=== PATIENT | male | born 1935 | race Caucasian/White ===

== ENCOUNTER → 2019-11-06 | Emergency (ER) | payer OTHER ==
[~2019-11-06] VITALS: Ht 175.3 cm; Wt 102.1 kg
[~2019-11-06] MED LIST: ALBUAER3 IN; ASPI-498 PO; B COCAP3 PO; BISO5TAB44 PO; CHOL20007 PO; CICL80AE2 IN; DABI1CAP PO; FERR-7 PO; FINA1TAB10 PO; FURO1TAB33 PO; FUROSEMIDE 20 MG/2 ML VIAL ONE; FUROSEMIDE 40 MG/4 ML VIAL IV ONE; GABA250S2 PO; HYDROmorphone HCL 2 MG/ML VL IV ONE; HYDROmorphone HCL 2 MG/ML VL ONE; KETOROLAC TROMETH 15 mg/ml 1ML VL IV ONE; KETOROLAC TROMETH 30 MG/ML 1ML VIAL ONE; LEVO750T8 PO; LIDOCAINE 1% HCL (LOCAL ANESTH.) INJ 20ML MDV ID ONE; LIDOCAINE 2% JELLY 11ml (GLYDO) ONE; LIDOCAINE HCL 2% TOP JELLY 5ML TOP ONE; LORazepam 2MG/ML-1ML VIAL IV ONE; ONDANSETRON HCL 4 MG/2 ML VIAL IV ONE; ONDANSETRON HCL 4 MG/2 ML VIAL ONE; PAR20T GT; PERCOT PO; PRIM50TA5 GT; SIMV-13 PO; SIMV-8 PO; TERA2CAP45 PO; TIOT1AER IN
[2019-11-06 09:11] LABS: Basophils # (auto) 0 10 ^3/uL (0-0.2); Basophils % (auto) 0.7 % (0.0-2.0); Eosinophils # (auto) 0.2 10 ^3/uL (0-0.8); Eosinophils % (auto) 3.7 % (0.0-7.0); Hematocrit 36.8 % (41.0-53.0); Hemoglobin 12.4 g/dL (13.5-17.5); Lymphocytes # (auto) 1.2 10 ^3/uL (0.4-5.4); Lymphocytes % (auto) 18.9 % (10.0-50.0); Mean Corpuscular Hemoglobin 32.2 pg (28.0-32.0); Mean Corpuscular Hgb Conc. 33.7 g/dL (32.0-36.0); Mean Corpuscular Volume 95.6 fL (80.0-100.0); Monocytes # (auto) 0.6 10 ^3/uL (0-1.3); Monocytes % (auto) 10.2 % (0.0-12.0); Neutrophils # (auto) 4.1 10 ^3/uL (1.6-8.6); Neutrophils % (auto) 66.5 % (37.0-80.0); Platelet Count (auto) 140 10^3/uL (140-450); Red Blood Cells 3.85 10^6/uL (4.5-5.90); Red Cell Distribution Width 13.8 % (11.8-14.3); White Blood Cell 6.2 10^3/uL (4.4-10.8)
[2019-11-06 09:36] LABS: Albumin 3.4 g/dL (3.4-5.0); Calcium 8.5 mg/dL (8.5-10.1); Potassium 3.8 mmol/L (3.5-5.1)
[2019-11-06 09:41] LABS: BUN/Creatinine Ratio 19.4; Bilirubin, Total 0.3 mg/dL (0.2-1.0); Total Protein 7.3 g/dL (6.4-8.2)
[2019-11-06 13:51] VITALS: BP 117/65
== END | disposition home or self-care (01) ==
LOC: ER 08:27
DX: R33.8 Other retention of urine (principal); I11.0 Hypertensive heart disease with heart failure; I50.43 Acute on chronic combined systolic (congestive) and diastolic (congestive) heart failure; Z88.5 Allergy status to narcotic agent; Z79.899 Other long term (current) drug therapy
CPT/HCPCS: 36415; 51705; 71045; 76856; 80053; 83880; 84484; 85025; 93005; 96374; 96375; 99285; J1170; J1885; J1940; J2001; J2060; J2405; 51702

== ENCOUNTER 2020-02-22 20:10 | Inpatient (IN) | payer OTHER ==
[~2020-02-22] VITALS: Ht 188 cm; Wt 106.8 kg
[~2020-02-22 20:10] MED LIST changes: -ALBUAER3 IN; -ASPI-498 PO; -B COCAP3 PO; -BISO5TAB44 PO; -CHOL20007 PO; -CICL80AE2 IN; -DABI1CAP PO; -FERR-7 PO; -FINA1TAB10 PO; -FURO1TAB33 PO; -FUROSEMIDE 20 MG/2 ML VIAL ONE; -FUROSEMIDE 40 MG/4 ML VIAL IV ONE; -GABA250S2 PO; -HYDROmorphone HCL 2 MG/ML VL IV ONE; -HYDROmorphone HCL 2 MG/ML VL ONE; -KETOROLAC TROMETH 15 mg/ml 1ML VL IV ONE; -KETOROLAC TROMETH 30 MG/ML 1ML VIAL ONE; -LEVO750T8 PO; -LIDOCAINE 1% HCL (LOCAL ANESTH.) INJ 20ML MDV ID ONE; -LIDOCAINE 2% JELLY 11ml (GLYDO) ONE; -LIDOCAINE HCL 2% TOP JELLY 5ML TOP ONE; -LORazepam 2MG/ML-1ML VIAL IV ONE; -ONDANSETRON HCL 4 MG/2 ML VIAL IV ONE; -ONDANSETRON HCL 4 MG/2 ML VIAL ONE; -PERCOT PO; -SIMV-13 PO; -TIOT1AER IN
[2020-02-22] MEDS ORDERED: SODIUM CHLORIDE 0.9% 2,700 ML IV ONE (22:00)
[2020-02-22 22:17] LABS: Basophils # (auto) 0 10 ^3/uL (0-0.2); Basophils % (auto) 0.1 % (0.0-2.0); Eosinophils # (auto) 0 10 ^3/uL (0-0.8); Eosinophils % (auto) 0.1 % (0.0-7.0); Hematocrit 28.4 % (41.0-53.0); Hemoglobin 9.4 g/dL (13.5-17.5); Lymphocytes # (auto) 0.7 10 ^3/uL (0.4-5.4); Lymphocytes % (auto) 7.8 % (10.0-50.0); Mean Corpuscular Hemoglobin 31.6 pg (28.0-32.0); Mean Corpuscular Hgb Conc. 33.1 g/dL (32.0-36.0); Mean Corpuscular Volume 95.4 fL (80.0-100.0); Monocytes # (auto) 0.6 10 ^3/uL (0-1.3); Monocytes % (auto) 7.1 % (0.0-12.0); Neutrophils # (auto) 7.5 10 ^3/uL (1.6-8.6); Neutrophils % (auto) 84.9 % (37.0-80.0); Platelet Count (auto) 214 10^3/uL (140-450); Red Blood Cells 2.98 10^6/uL (4.5-5.90); Red Cell Distribution Width 15.1 % (11.8-14.3); White Blood Cell 8.8 10^3/uL (4.4-10.8)
[2020-02-22] MEDS: PIPERACILLIN-TAZOB 3.375GM 100 ML IV SCH (22:26)
[2020-02-22 22:33] LABS: INR 1.15 (0.9-1.15); Partial Thromboplastin Time 31.5 sec (23.0-31.2)
[2020-02-22 23:00] LABS: Urine Amorphous Crystal FEW /hpf (None Seen); Urine Bacteria FEW /hpf (None Seen); Urine Blood 2+ /uL (Negative); Urine Hyaline Cast FEW /lpf (0 - 2); Urine Mucus FEW (None Seen); Urine Specific Gravity 1.021 (1.001-1.035); Urine WBC 7 /hpf (0 - 3)
[2020-02-22 23:01] LABS: Albumin 2.2 g/dL (3.4-5.0); BUN/Creatinine Ratio 43.5; Calcium 10.1 mg/dL (8.5-10.1); Potassium 4.2 mmol/L (3.5-5.1)
[2020-02-22 23:06] LABS: Bilirubin, Total 0.4 mg/dL (0.2-1.0); Total Protein 6.3 g/dL (6.4-8.2)
[2020-02-22 23:52] LABS: Lactic Acid w/Reflex 2.2 mmol/L (0.4-2.0)
[2020-02-23 00:28] LABS: Amylase 17 U/L (25-115); Lipase 17 U/L (73-393)
[2020-02-23] MEDS ORDERED: ENOXAPARIN SOD 60 MG/0.6 ML SYRINGE SC ONE (02:15)
[2020-02-23] MEDS ORDERED: ASPirin-EC 325mg tab PO ONE (02:15)
[2020-02-23] MEDS ORDERED: SODIUM CHLORIDE 0.9% 1,000 ML IV ONE (03:30)
[2020-02-23] MEDS ORDERED: ACETAMINOPHEN 325 MG TAB PO PRN ×2 (03:30→14:15)
[2020-02-23] MEDS ORDERED: ONDANSETRON HCL 4 MG/2 ML VIAL IV PRN (03:30)
[2020-02-23] MEDS ORDERED: IPRATROPIUM BROM 0.5 MG/2.5ML INH SOL NEB PRN (03:30)
[2020-02-23] MEDS ORDERED: DOCUSATE SOD 100 MG CAP PO PRN (03:30)
[2020-02-23] MEDS ORDERED: NITROGLYCERIN 0.4 MG SL TAB SL PRN (03:30)
[2020-02-23] MEDS: cefTRIAXone 1GM/50ML D5W 50 ML IV SCH (03:55)
[2020-02-23 04:02] LABS: Calcium 8.7 mg/dL (8.5-10.1)
[2020-02-23 04:09] LABS: BUN/Creatinine Ratio 42.7
[2020-02-23 04:21] VITALS: BP 162/141
[2020-02-23] MEDS: PIPERACILLIN-TAZOB 3.375GM 100 ML IV SCH (05:27)
--- NOTE | 2020-02-23 06:24 | NUR ---
RT NOTE: NO TX INDICATED AT THIS TIME. NO SIGNS OF RESPIRATORY DISTRESS. LUNG SOUNDS CLEAR. ON 1LNC SPO2 99 HR 73 RR 22. PT AWARE TO PAGE FOR RESPIRATORY SHOULD NEED FOR TX ARISE. WILL CONTINUE TO MONITOR.
[2020-02-23 06:55] LABS: Basophils # (auto) 0 10 ^3/uL (0-0.2); Basophils % (auto) 0.2 % (0.0-2.0); Eosinophils # (auto) 0 10 ^3/uL (0-0.8); Eosinophils % (auto) 0.2 % (0.0-7.0); Hematocrit 30.1 % (41.0-53.0); Hemoglobin 9.7 g/dL (13.5-17.5); Lymphocytes # (auto) 0.6 10 ^3/uL (0.4-5.4); Lymphocytes % (auto) 6.7 % (10.0-50.0); Mean Corpuscular Hemoglobin 31.6 pg (28.0-32.0); Mean Corpuscular Hgb Conc. 32.4 g/dL (32.0-36.0); Mean Corpuscular Volume 97.4 fL (80.0-100.0); Monocytes # (auto) 0.5 10 ^3/uL (0-1.3); Monocytes % (auto) 5.7 % (0.0-12.0); Neutrophils # (auto) 7.6 10 ^3/uL (1.6-8.6); Neutrophils % (auto) 87.2 % (37.0-80.0); Nucleated Red Blood Cells % 0.1 %; Platelet Count (auto) 183 10^3/uL (140-450); Red Blood Cells 3.09 10^6/uL (4.5-5.90); Red Cell Distribution Width 15.5 % (11.8-14.3); White Blood Cell 8.8 10^3/uL (4.4-10.8)
--- NOTE | 2020-02-23 09:29 | NUR ---
Report Received report from PAINT SPRAY INSPECTORCAMRYN Bearden.
[2020-02-23] MEDS ORDERED: CLOPIDOGREL BISULFATE 75 MG TAB PO SCH (10:00)
[2020-02-23] MEDS ORDERED: TERAZOSIN HCL 1 MG CAP PO SCH (10:00)
[2020-02-23] MEDS: ENOXAPARIN SOD 100 MG/1 ML SYRINGE SC SCH ×2 (10:00→23:30)
[2020-02-23] MEDS: PARoxetine 20 MG TAB PO SCH (10:00)
[2020-02-23 10:15] VITALS: BP 110/50
--- NOTE | 2020-02-23 10:15 | NUR ---
Patient Arrived to Unit Addendum: 02/23/20 at 1836 by NAY GONZALEZ RN RN Patient currently resting with eyes closed, no signs of distress at this time, respirations even and unlabored. Will continue to monitor.
[2020-02-23 10:21] VITALS: BP 110/50
--- NOTE | 2020-02-23 11:41 | NUR ---
at Bedside Dr. Andersen at bedside discussing plan of care with patient.
[2020-02-23] MEDS ORDERED: GABAPENTIN 300 MG CAP PO ONE (12:30)
[2020-02-23 12:40] VITALS: BP 112/52
--- NOTE | 2020-02-23 13:35 | NUR ---
Family Updated family on patient plan of care. Obtained patient home meds, see med rec.
[2020-02-23] MEDS ORDERED: PERCOT PO (13:45)
[2020-02-23] MEDS: PRIMIDONE 50 MG TAB PO SCH (13:55)
[2020-02-23] MEDS: ASPirin-EC 81 mg tab PO SCH (13:59)
--- NOTE | 2020-02-23 14:05 | NUR ---
Called Received call from Dr. Andersen, new orders received.
[2020-02-23] MEDS ORDERED: OXYCODONE W/ ACETAMINOPHEN 5/325MG TABLET PO PRN (14:15)
[2020-02-23] MEDS: OXYCODONE W/ ACETAMINOPHEN 5/325MG TABLET PO PRN (14:33)
--- NOTE | 2020-02-23 15:48 | NUR ---
Obtained Forms Obtained patient's legal paperwork, placed in chart.
--- NOTE | 2020-02-23 15:57 | NUR ---
Consent for Medical Records Obtained patient consent for medical records; Patient unable to sign at this time and provided verbal consent, witnessed with Philomena Harper RN, patient is AOx4 at this time.
--- NOTE | 2020-02-23 16:15 | NUR ---
Fax Sent fax to [facility] requesting patient's medical records.
--- NOTE | 2020-02-23 17:20 | NUR ---
BP Patient's blood pressure 80/50. Patient is currently asymptomatic and responds to voice. Patient's legs elevated and blood pressure reassessed, BP currently 102/59 HR 78. Will notify
--- NOTE | 2020-02-23 17:35 | NUR ---
MD Called Received call back from Dr. Andersen. Notified MD of patient's blood pressure and actions taken. Per Md, administer .9normal saline at 66ml/hr and discontinue blood pressure medication.
[2020-02-23 17:36] VITALS: BP 102/59
[2020-02-23] MEDS: ALBUTEROL SULF 2.5 MG/0.5ML(0.5%) NEB SOLN NEB PRN (17:40)
[2020-02-23] MEDS: SODIUM CHLORIDE 0.9% 1,000 ML IV SCH (17:56)
[2020-02-23] MEDS: ATORVASTATIN 20 MG TAB PO SCH (17:56)
--- NOTE | 2020-02-23 17:57 | NUR ---
MRSA Swab MRSA Swab sent to lab.
--- NOTE | 2020-02-23 18:30 | NUR ---
BP Reassessed Reassessed blood pressure: 117/91, HR 81.
--- NOTE | 2020-02-23 19:30 | NUR ---
Closing Shift Note Report given to NOC RNKristen. Endorsed care and follow up of medical records fax.
[2020-02-23] MEDS ORDERED: DABI1CAP PO (19:32)
[2020-02-23] MEDS ORDERED: FINA1TAB10 PO (19:42)
[2020-02-23] MEDS ORDERED: FERR-7 PO (19:42)
[2020-02-23] MEDS ORDERED: ASPI-498 PO (19:42)
[2020-02-23] MEDS ORDERED: SIMV-13 PO (19:42)
[2020-02-23] MEDS ORDERED: CICL80AE2 IN (19:42)
[2020-02-23] MEDS ORDERED: TIOT1AER IN (19:42)
[2020-02-23] MEDS ORDERED: BISO5TAB44 PO (19:42)
[2020-02-23] MEDS ORDERED: GABA250S2 PO (19:42)
[2020-02-23] MEDS ORDERED: CHOL20007 PO (19:42)
[2020-02-23] MEDS ORDERED: B COCAP3 PO (19:42)
[2020-02-23] MEDS ORDERED: ALBUAER3 IN (19:42)
[2020-02-23 22:00] VITALS: BP 108/61
[2020-02-23] MEDS: GABAPENTIN 300 MG CAP PO SCH (23:30)
[2020-02-24] MEDS ORDERED: FURO1TAB33 PO (03:53)
--- NOTE | 2020-02-24 04:01 | NUR ---
PATIENT DAUGHTER CALLED UPDATED HER ON PATIENT STATUS
[2020-02-24 06:00] VITALS: BP 118/60
[2020-02-24] MEDS: GABAPENTIN 300 MG CAP PO SCH ×3 (06:54→21:31)
--- NOTE | 2020-02-24 07:38 | NUR ---
Respiratory note: HR 82, RR 18, SPO2 96% ON 2 L NC, BS CLEAR. PRN MED NEB TX NOT INDICATED AT THIS TIME.NO SIGNS OR SYMPTOMS OF RESPIRATORY DISTRESS NOTED.
[2020-02-24] MEDS: SODIUM CHLORIDE 0.9% 1,000 ML IV SCH (08:54)
[2020-02-24 09:00] VITALS: BP 125/64
--- NOTE | 2020-02-24 10:08 | NUR ---
WOUND CARE NOTE: Wound care in to see patient per wound care request regarding "wounds on sacrum, bed bound". Patient is 84 years old male with admitting diagnosis of NSTEMI, Urinary Tract Infection. Patient is resting in bed in Rm. 280A. Patient is awake, alert and able to verbalize needs. Patient is in no stated pain at this time. He's max assist in turning and repositioning and his Issa score is 17. Skin assessment done with the assistance of patient's nurse, CAMRYN Kelsey. Noted intact DTI to patient's Lt (7x1.2cm) and Rt (5x4cm) sacrum. Wounds are dark red/purple, with bright red non-blanchable surrounding skin. Patient's nurse, CAMRYN Kelsey reported that according to patient's daughter that patient has had the sacral wounds "black spots" and she's going the treatment and applying gauze. Patient is incontinent and passed small amount of pasty stool. Jo-Ann care given and photograph of patient's wounds are taken for reference. Applied Z Guard cream to sacral and buttocks area. Repositioned patient for comfort facing his Lt side, redistributed pressure points with pillows. Patient tolerated well. CAMRYN kelsey at bedside. RECOMMENDATION: Nursing to continue with BID/PRN dressing change to sacral wounds per MD order, Dietary consult, frequent turning and repositioning schedule as condition permits, redistribute pressure points with pillows, side to side positioning if possible, elevate heels on pillows,air mattress (ordered), continue monitoring by wound care while patient is hospitalized. Addendum: 02/24/20 at 1229 by Vandana Jovel RN Amended: Links added.
[2020-02-24] MEDS: PRIMIDONE 50 MG TAB PO SCH (10:20)
[2020-02-24] MEDS: cefTRIAXone 1GM/50ML D5W 50 ML IV SCH (10:20)
[2020-02-24] MEDS: ASPirin-EC 81 mg tab PO SCH (10:20)
[2020-02-24] MEDS: PARoxetine 20 MG TAB PO SCH (10:26)
[2020-02-24] MEDS: ENOXAPARIN SOD 100 MG/1 ML SYRINGE SC SCH ×2 (10:26→21:31)
[2020-02-24] MEDS: OXYCODONE W/ ACETAMINOPHEN 5/325MG TABLET PO PRN (10:55)
--- NOTE | 2020-02-24 12:03 | NUR ---
Assessment Patient is an 84-year-old male. Assessment was completed with patient daughter Yvette Ph:). Per Yvette patient lives with her and functioned with assistance. Per Yvette she is patient caregiver. Per Yvette patient has a walker, wheelchair, shower chair and home oxygen for home use. Advised Yvette there is a social service consult for hospice. Information and choice letter was given to Yvette. Per Yvette she would like [facility]. Informed Yvette clinical information will be faxed to [facility] and Rebecca with [facility] will be contacting her. Per Yvette patient will return home to his prior living arrangements post discharge. Informed Yvette she has a right to participate in all discharge planning. Yvette verbalized understanding and agreed to discharge plan. Faxed clinical information to [facility]. Addendum: 02/24/20 at 1204 by TA VARELA Amended: Links added.
--- NOTE | 2020-02-24 12:11 | NUR ---
AIR MATTRESS: Air mattress ordered at [facility]. VICK 02/24/20 @ 1809 Reference #[id number]. Please call [facility] at if needed to follow up. Addendum: 02/24/20 at 1211 by Vandana Jovel RN Amended: Links added.
[2020-02-24 13:00] VITALS: BP 130/60
--- NOTE | 2020-02-24 14:36 | NUR ---
Consult Consider adding Ensure Enlive BID Consider adding MVI and Vit C 500 mg BID Est energy needs 2468-8828 kcal (20-22 kcal/kg WW 89.8kg) Est protein needs 77-90g (0.8-1g/kg BW 89.8kg) will reassess prn. Addendum: 02/24/20 at [address] Amended: Links added.
--- NOTE | 2020-02-24 15:00 | NUR ---
D/C planning Received a follow up called from Rebecca with [facility] advising me Lalo is requesting an order to be faxed to them for hospice. Informed Rebecca textile conversion manager assign to this case will faxed clinical information to [facility].
[2020-02-24 16:29] VITALS: BP 102/57
[2020-02-24] MEDS: ATORVASTATIN 20 MG TAB PO SCH (17:55)
--- NOTE | 2020-02-24 19:30 | NUR ---
Opening Shift Note Assumed care of patient, awake and alert. No S/S of distress/SOB or pain. Instructed on POC and to call for assist PRN. Bed in lowest locked position, call light within reach, side rails up x2, fall precautions in place. Will continue to monitor for changes Q1hr and PRN.
--- NOTE | 2020-02-24 21:15 | NUR ---
EKG Tele monitor showing new onset A-fib, EKG done and signed by oncall hospitalist, placed in hard chart. No new orders at this time. Continue to monitor patient.
[2020-02-24 22:00] VITALS: BP 102/61
[2020-02-24] MEDS: BUDESONIDE (INHALATION) 0.5 MG/2 ML NEB NEB SCH (22:24)
[2020-02-24] MEDS: ALBUTEROL SULF 2.5 MG/0.5ML(0.5%) NEB SOLN NEB PRN (22:24)
--- NOTE | 2020-02-24 23:22 | NUR ---
Spoke with hospitalist Spoke with KEKE Mota and informed that patients HR has sustained afib between 120s-130s . New orders received and read back for verification.
[2020-02-24] MEDS ORDERED: DIGOXIN (250MCG/ML) 2 ML AMPULE IV ONE (23:30)
[2020-02-25 05:00] VITALS: BP 130/71
[2020-02-25] MEDS: GABAPENTIN 300 MG CAP PO SCH ×2 (06:04→14:58)
[2020-02-25 08:00] VITALS: BP 115/55
--- NOTE | 2020-02-25 08:00 | NUR ---
ASSESSMENT NOTE PT IS ALERT TO SELF AND SITUATION, CONFUSED ON TIMES AND PERSON, RESTING IN BED IN LOW CARDOZA POSITION, AIR MATTRESS, RODRÍGUEZ CATHETER TO GRAVITY, ABLE TO VERBALIS HIS NEEDS, ASSISTING IN REPOSITIONING AT ALL TIMES, HEAD OF BED ELEVATED FOR ASPIRATION PRECAUTIONS, DRY CLEAN DRESSING NOTED AT THE RT BUTTOCKS AREA, ASSIST PT WITH HIS MEALS, KEPT DRY AND CLEAN
[2020-02-25 09:00] VITALS: BP 104/57
[2020-02-25] MEDS: cefTRIAXone 1GM/50ML D5W 50 ML IV SCH (09:23)
[2020-02-25] MEDS: ENOXAPARIN SOD 100 MG/1 ML SYRINGE SC SCH (09:24)
[2020-02-25] MEDS: PARoxetine 20 MG TAB PO SCH (09:24)
[2020-02-25] MEDS: PRIMIDONE 50 MG TAB PO SCH (09:24)
--- NOTE | 2020-02-25 09:49 | NUR ---
FAMILY PATIENT'S DAUGHTER CALLED, INFORM ME THAT THEY DID OBTAIN A REFERRAL FROM DR WILD IN [place] FOR HER FATHER TO GO HOME ON HOSPICE, PT MADE AWARE
[2020-02-25] MEDS: ASPirin-EC 81 mg tab PO SCH (10:00)
[2020-02-25] MEDS: BUDESONIDE (INHALATION) 0.5 MG/2 ML NEB NEB SCH (10:16)
--- NOTE | 2020-02-25 11:15 | NUR ---
02/25/20 4713 Faxed to [place] face sheet, Order for Hospice, H&P, progress notes, Requesting Hospice.
--- NOTE | 2020-02-25 11:35 | NUR ---
DR STOCK IS HERE FOLLOWING UP ON PT, ADVICE TO FOLLOW UP WITH [facility] REGARDING DISCHARGE HOME WITH HOSPICE TODAY
[2020-02-25] MEDS ORDERED: AMIODARONE HCL 200 MG TAB PO ONE (12:00)
[2020-02-25 13:00] VITALS: BP 130/64
--- NOTE | 2020-02-25 13:30 | NUR ---
PHYSICAL THERAPY AT BED SIDE ASSISTING PT TO GET OUT OF BED
--- NOTE | 2020-02-25 14:00 | NUR ---
CALLED [facility] LEFT A MESSAGE AT HER ANSWER MACHINE TO CALL ME BACK
--- NOTE | 2020-02-25 15:43 | NUR ---
02/25/20 1500 Called [facility] and held on the phone for 20 minutes, then spoke with Ruby regarding the Hospice request for the patient, stated she has the clinicals that were sent and there was only 2 field nurse case manager that handle the request and she was going to assign them to one of the two but would not give me a name, Gave her my call back information explain to her that the patient has an order to go home today and the family wants him to be discharged
--- NOTE | 2020-02-25 15:50 | NUR ---
FAMILY PATIENT'S DAUGHER CALLED SATED I AM GOING TO PICK HIM UP NOW, I ALREADY SET UP APPOINTMENT WITH HOSPICE TOMORROW AND THEY WILL COME HOME TO TALK TO MY FATHER> INFORM DOUGLAS PATIENT'S DAUGHTER THAT I AM WAITING FOR HOSPICE TO COME OVER , DO THEIR ASSESSMENT AND TRANSFER HIM TO HER HOUSE, DOUGLAS STATED NO, HE DOES NOT NEED TO STAY ANOTHER NIGHT AT THE HOSPITAL, HE NEED TO COME HOME>, MADE AWARE THAT I AM WORKING ON HIS PAPER ORK AND GET HIM READY TO BE DISCHARGE HOME
[2020-02-25] MEDS ORDERED: LEVO750T8 PO (15:59)
--- NOTE | 2020-02-25 16:03 | NUR ---
PAGE DR STOCK CALLED BACK, MADE AWARE OF PATIENT'S DAUGHTER DOUGLAS REQUEST THAT SHE NEED HER DAD TO GO HOME NOW, DR STOCK INFORM ME THAT SHE JUST SPOKE WITH HER 20SEC AGO AND ITS OKAY TO GO HOME, LEVAQUIN WAS SENT ELECTRONICALLY TO PATIENT'S PHARMACY, PT WILL BE DISCHARGE HOME ONLY NOT WITH HOSPICE
--- NOTE | 2020-02-25 16:05 | NUR ---
CINDY ADDED THAT ALL DISCHARGE INSTRUCTION GIVEN TO DOUGLAS AND A NEW RX SENT ELECTRONICALLY TO PATIENT'S PHARMACY, AND SHE VERBALIS UNDERSTANDING
--- NOTE | 2020-02-25 16:11 | NUR ---
02/25/2020 3887 Spoke with Du MCKEON at [place] and stated the patient has a Hospice referral, set up and can go home, and they will follow up.
--- NOTE | 2020-02-25 16:24 | NUR ---
FAMILY PATIENT'S DAUGHTER IS WAITING IN THE LOBBY, TRYING TO GET PATIENT READY
--- NOTE | 2020-02-25 16:30 | NUR ---
BM PT HAS A SECOND BM, DARK STOOL NOTED, KEPT DRY AND CLEAN, NEW OPTIFOAM APPLIED OVER PATIENT" S SKIN PRESSURE ON BOTH UPPER BUTTOCKS CHEEKS, PT TOLERATE WELL
--- NOTE | 2020-02-25 16:40 | NUR ---
PAGE PHYSICAL THERAPY IN ORDER TO HELP US TO GET PT TO THE WHEEL CHAIR
--- NOTE | 2020-02-25 16:47 | NUR ---
PT LEFT VIA A WHEELCHAIR WITH PHYSICAL THERAPY ASSISTANCE AND OXYGEN 2 L NC
--- NOTE | 2020-02-25 17:00 | NUR ---
PORCELAIN SLUSHER IS BACK, INFORM ME THAT THE DAUGHTER IS VERY UPSET BECAUSE HER DAD DOES NOT HAVE A DIAPER ON, PT HAS A COTTON SHEET UNDER HIS NEATH AND BETWEEN HIS THIGHS, STATE I AM GOING TO COMPLAIN, CHARGE NURSE ASHA COWAN MADE AWARE
[2020-02-26] MEDS ORDERED: AMIODARONE HCL 200 MG TAB PO SCH (10:00)
== END 2020-02-25 16:46 | disposition hospice, home (50) | DRG 177 ==
LOC: EDBD 20:10 → ER 20:10 → TELE 20:11 → TELE-WESTW 02-23 09:55
PROVIDERS: ADMIT Hospitalist; ATTEND Internal Medicine Nephrology
DX: J15.6 Pneumonia due to other Gram-negative bacteria (principal); G93.41 Metabolic encephalopathy; I21.A1 Myocardial infarction type 2; I50.21 Acute systolic (congestive) heart failure; C22.9 Malignant neoplasm of liver, not specified as primary or secondary; C34.90 Malignant neoplasm of unspecified part of unspecified bronchus or lung; N39.0 Urinary tract infection, site not specified; I25.119 Atherosclerotic heart disease of native coronary artery with unspecified angina pectoris; E78.5 Hyperlipidemia, unspecified; I11.0 Hypertensive heart disease with heart failure; I48.0 Paroxysmal atrial fibrillation; J44.9 Chronic obstructive pulmonary disease, unspecified; Z79.899 Other long term (current) drug therapy; Z87.891 Personal history of nicotine dependence; Z95.0 Presence of cardiac pacemaker; Z95.1 Presence of aortocoronary bypass graft; R94.5 Abnormal results of liver function studies; Z90.89 Acquired absence of other organs; Z90.49 Acquired absence of other specified parts of digestive tract; Z88.5 Allergy status to narcotic agent; E66.9 Obesity, unspecified; Z68.30 Body mass index [BMI] 30.0-30.9, adult; Z51.5 Encounter for palliative care; Z66 Do not resuscitate; I95.9 Hypotension, unspecified
CPT/HCPCS: 36415; 51702; 71045; 80048; 80053; 80061; 81001; 82150; 83605; 83690; 83880; 84484; 85025; 85610; 85730; 87040; 87081; 87086; 93005; 93306; 94640; 96361; 96365; 96366; 96367; 96372; 97110; 97116; 97530; G0378; J0696; J2405; J2543